=== PATIENT | male | born 1945 | race Caucasian/White ===

== ENCOUNTER → 2016-09-12 | Outpatient (CLI) | payer MEDICARE ==
--- NOTE | 2016-09-14 07:35 | US ---
EXAMINATION TYPE: US thyroid st tissue head/neck DATE OF EXAM: 09/12/2016 COMPARISON: CT neck October 18, 2015 CLINICAL HISTORY: E04.1 L Thyroid Nodule. Previous CT SCAN. GLAND SIZE: Right Lobe: 4.8 X 1.6 X 1.5 cm Overall Parenchyma: homogenous Left Lobe: 4.5 X 1.6 X 1.4 cm Overall Parenchyma: homogeneous Isthmus Thickness: 0.27 cm NODULES RIGHT: # of nodules measured on right: 1 1. .9 X .4 x .6 cm hypoechoic cystic nodule at the upper pole with well-defined margins; This nodu le is wider than tall and shows no intranodular vascularity. LEFT: # of nodules measured on left: 2 1. .8 X .7 x 1.0 cm hypoechoic mixed nodule at the lower pole with well-defined margins; This nodu le is wider than tall and shows no intranodular vascularity. 2. .9 X .4 x .7 cm cystic nodule at the mid pole with well-defined margins; This nodule is wider th an tall and shows no intranodular vascularity. Bilateral neck scanned, no evidence of lymphadenopathy. IMPRESSION: Thyroid gland is normal in size and homogeneous in echotexture with a few small nodules noted bilater ally. No suspicious greater than 1 cm solid or cystic nodules are identified.
== END | disposition home or self-care (01) ==
LOC: RADUSWWP 13:50
PROVIDERS: ATTEND Otolaryngology
DX: E04.2 Nontoxic multinodular goiter (principal)
CPT/HCPCS: 76536

== ENCOUNTER → 2017-10-30 | Outpatient (CLI) | payer MEDICARE ==
--- NOTE | 2017-10-30 23:18 | US ---
EXAMINATION TYPE: US thyroid st tissue head/neck DATE OF EXAM: 10/30/2017 COMPARISON: 09/12/2016 CLINICAL HISTORY: 72-year-old male E04.1 thyroid nodule. History of thyroid nodules TECHNIQUE: Multiple sonographic images of the thyroid gland are obtained. FINDINGS: GLAND SIZE: Right Lobe: 4.3 x 1.7 x 2.0 cm Overall Parenchyma: homogenous Left Lobe: 3.5 x 1.5 x 1.4 cm Overall Parenchyma: homogeneous Isthmus Thickness: 0.2 cm NODULES RIGHT: # of nodules measured on right: 1 1. 1.0 X 0.6 x 0.7 cm benign colloid cyst cystic upper pole. upper size: 0.9 well-defined cm LEFT # of nodules meawider than tall 2 1. 8 x 6 x 5 mm mixed nodule at the lowe0.9ole0.4th w0.6-defined margins. This nodule is wider th2n tal0.8nd 0.5ws i0.6anod rmixedularity. Prilowerze: 10 x 8 x 7 mm 2. 0.9 X 5 x 0.6 cm benign cyst at the midpole. Pmidr size: 0.well-defined.7 cm I MUS: # of nodulwider than tallthe isthmus: 0 English Horn Player notes: Bilateral neck scanned, no evidence of [id number] Multiple subcentimeter thy roid nodules noted bilaterally with largest [id number] on the right and largest 2 measured on the left IMPRESSION: 1. Multinodular thyroid gland with the largest nodules measured. The mixed solid cystic nodule in the left lower pole shows slight decrease in size now measuring 8 x 6 mm versus 10 x 8 mm, previously. 2. Most of the other nodules are cysts.
--- NOTE | 2017-10-31 14:39 | US ---
EXAMINATION TYPE: US thyroid st tissue head/neck DATE OF EXAM: 10/30/2017 COMPARISON: 09/12/2016 TECHNIQUE: Multiple sonographic images of the thyroid gland are obtained. CLINICAL HISTORY: 72-year-old male E04.1 thyroid nodule. History of thyroid nodules FINDINGS: GLAND SIZE: Right Lobe: 4.3 x 1.7 x 2.0 cm Overall Parenchyma: homogenous Left Lobe: 3.5 x 1.5 x 1.4 cm Overall Parenchyma: homogeneous Isthmus Thickness: 0.2 cm NODULES RIGHT: # of nodules measured on right: 1 1. 1.0 X 0.6 x 0.7 cm benign colloid cyst in the upper pole. Prior size: 0.9 x 0.4 x 0.6 cm LEFT: # of nodules measured on left: 2 1. 8 x 6 x 5 mm mixed nodule at the lower pole with well-defined margins; . This nodule is wider michelle n tall and shows intranodular vascularity. Prior size: 10 x 8 x 7 mm 2. 0.9 X 0.5 x 0.6 cm benign cyst at the midpole. Prior size: 0.9 x 0.4 x 0.7 cm ISTHMUS: # of nodules measured in the isthmus: 0 Social Work Associate notes: Bilateral neck scanned, no evidence of lymphadenopathy. Multiple thyroid nodules noted bilaterally with largest measured on the right and largest 2 measured on the left IMPRESSION: 1. Multinodular thyroid gland with the largest nodules measured. The mixed solid cystic nodule in the left lower pole shows slight decrease in size now measuring 8 x 6 mm versus 10 x 8 mm, previously. 2. Most of the other nodules are cysts.
== END | disposition home or self-care (01) ==
LOC: RADUSWWP 15:53
PROVIDERS: ATTEND Otolaryngology
DX: E04.2 Nontoxic multinodular goiter (principal)
CPT/HCPCS: 76536

== ENCOUNTER → 2019-02-07 | Outpatient (CLI) | payer MEDICARE ==
--- NOTE | 2019-02-07 13:44 | US ---
EXAMINATION TYPE: US thyroid st tissue head/neck DATE OF EXAM: 02/07/2019 COMPARISON: Thyroid ultrasound October 30, 2017 CLINICAL HISTORY: E04.1 thyroid nodule. Follow up thyroid nodule GLAND SIZE: Right Lobe: 4.2 x 1.5 x 1.3 cm Overall Parenchyma: homogenous Left Lobe: 3.7 x 1.6 x 1.1 cm Overall Parenchyma: homogeneous Isthmus Thickness: 0.2 cm NODULES RIGHT: # of nodules measured on right: 1 1. 1.0 X 0.7 x 0.7 cm cystic nodule at the upper pole with well-defined margins; . This nodule is wider than tall and shows peripheral vascularity . Prior size: 1.0 x 0.6 x 0.7 cm LEFT: # of nodules measured on left: 2 1. 0.9 X 0.5 x 0.7 cm mixed nodule at the lower pole with poorly defined margins; . This nodule is wider than tall and shows no intranodular vascularity. Prior size: 0.8 x 0.6 x 0.5 cm 2. 1.0 X 0.4 x 0.7 cm cystic nodule at the mid pole with well-defined margins; . This nodule is wid er than tall and shows no intranodular vascularity. Prior size: 0.9 x 0.5 x 0.6 cm ISTHMUS: # of nodules measured in the isthmus: 0 Bilateral neck scanned, no evidence of lymphadenopathy. Persistent normal size and fairly homogeneous thyroid gland with scattered small nodules. No signific ant interval change. No nodules are evident. IMPRESSION: As above. Stable Multinodular thyroid redemonstrated.
== END | disposition home or self-care (01) ==
LOC: RADUSWWP 12:48
PROVIDERS: ATTEND Otolaryngology
DX: E04.2 Nontoxic multinodular goiter (principal)
CPT/HCPCS: 76536